=== PATIENT | female | born 1990 | race Hispanic/Latino ===

== ENCOUNTER 2021-10-23 12:23 | Outpatient (CLI) | payer BC ==
[2021-10-24 15:30] LABS: SARS-CoV-2 PCR by NAA Not Detected (NotDetected)
== END 2021-10-23 12:24 | disposition home or self-care (01) ==
LOC: CSHLAB 12:23
PROVIDERS: ATTEND Obstetrics & Gynecology
DX: Z20.822 Contact with and (suspected) exposure to COVID-19 (principal)
CPT/HCPCS: U0003; U0005

== ENCOUNTER 2021-10-26 07:56 | Inpatient (IN) | payer BC ==
[2021-10-27] MEDS: Lactated Ringer's 1,000 ML IV SCH ×2 (12:00→13:26)
[2021-10-27] MEDS ORDERED: CEFAZOLIN 2 GM in Premix Bag 1 BAG IVPB SCH (12:21)
[2021-10-27] MEDS ORDERED: Famotidine/PF 20 mg/2ml Vial SLOW IVP PRN (12:21)
[2021-10-27] MEDS ORDERED: hydrALAZINE 20 MG/ML VIAL SLOW IVP PRN ×2 (12:21→17:50)
[2021-10-27] MEDS ORDERED: Ondansetron PF 4 MG/2 ML Vial IVP PRN ×3 (12:21→17:50)
[2021-10-27] MEDS ORDERED: Promethazine HCl 25 MG/ML VIAL IM PRN ×2 (12:21→15:28)
[2021-10-27] MEDS ORDERED: Bicitra 30 ML UDCUP PO PRN (12:21)
[2021-10-27 12:31] VITALS: BMI 51.2
[2021-10-27 12:51] LABS: Hemoglobin 12.2 g/dL (12.0-15.5); Mean Corpuscular HGB CONC 32.5 g/dL (32.0-36.0); Mean Corpuscular Hemoglobin 28.6 pg (27.0-33.0); Mean Corpuscular Volume 87.8 fl (81.6-98.3); Mean Platelet Volume 10.8 fl (7.4-10.4); Platelet Count 353 10x3/uL (150-450); RBC Distribution Width 14.8 % (11.5-14.5); Red Blood Cell (RBC) Count 4.27 10x6/uL (3.90-5.03); White Blood Cell (WBC) Count 9.1 10x3/uL (3.5-10.5)
[2021-10-27 13:18] LABS: Syphilis Antibody Nonreactive (Nonreactive); Syphilis Antibody Index 0.04 S/CO (<1.00 Non-Reactive)
[2021-10-27 13:19] LABS: Hep B Surf Ag Non-Reactive S/CO (NonReactive)
[2021-10-27 13:58] LABS: HBSAg Index 0.19 S/CO (0-0.99)
[2021-10-27] MEDS ORDERED: ePHEDrine Sulfate 50 MG/10 ML VIAL ONE (14:15)
[2021-10-27] MEDS ORDERED: Morphine PF 10 MG/10 ML VIAL ONE (14:15)
[2021-10-27] MEDS ORDERED: Ketorolac Tromethamine 30 MG/ML VIAL ONE (14:16)
[2021-10-27] MEDS ORDERED: Ondansetron PF 4 MG/2 ML Vial ONE (14:16)
[2021-10-27] MEDS ORDERED: Dexamethasone 4 mg/ml Vial ONE (14:16)
[2021-10-27] MEDS ORDERED: Oxytocin 10 UNITS/ML VIAL ONE (14:16)
[2021-10-27] MEDS ORDERED: Phenylephrine 40 MG/NS 250 ML 250 ML ONE (14:16)
[2021-10-27] MEDS ORDERED: Meperidine HCl/PF 25 MG/ML VIAL SLOW IVP PRN (15:28)
[2021-10-27] MEDS ORDERED: diphenhydrAMINE 50 MG/ML VIAL IVP PRN (15:28)
[2021-10-27] MEDS ORDERED: Hydrocerin (Eucerin) Cream 120 gm Jar TOP PRN (15:28)
[2021-10-27] MEDS ORDERED: Fentanyl 100 MCG/2 ML VIAL SLOW IVP PRN (15:28)
[2021-10-27] MEDS ORDERED: Promethazine HCl 25 MG SUPP PR PRN (15:28)
[2021-10-27] MEDS ORDERED: Ondansetron HCl/PF 4 MG/2 ML Vial IVP PRN (15:28)
[2021-10-27] MEDS ORDERED: Naloxone HCl 0.4 mg/ml Vial IV PRN (15:28)
[2021-10-27] MEDS ORDERED: Naloxone HCl 0.4 mg/ml Vial IVP PRN ×2 (15:28)
[2021-10-27] MEDS ORDERED: Communication Order-Pharmacy FS SCH (15:30)
[2021-10-27] MEDS ORDERED: Ketorolac Tromethamine 30 MG/ML VIAL IVP SCH (15:30)
[2021-10-27] MEDS ORDERED: Simethicone Chewable 80 MG TAB PO PRN (17:50)
[2021-10-27] MEDS ORDERED: NS w/ Oxytocin 30 units 500 ML IV SCH (17:50)
[2021-10-27] MEDS ORDERED: Boostrix 0.5 ML (Tdap) VIAL IM ONE (17:50)
[2021-10-27] MEDS ORDERED: Bisacodyl 10 MG SUPP PR PRN (17:50)
[2021-10-27] MEDS ORDERED: Lanolin Ointment 7 GM TUBE TOP PRN (17:50)
[2021-10-27] MEDS: Ketorolac Tromethamine 30 MG/ML VIAL IVP PRN (22:13)
[2021-10-27] MEDS: Docusate Calcium (SURFAK) 240 MG CAP PO SCH (22:15)
[2021-10-27] MEDS: Ferrous Sulfate 325 MG TAB PO SCH (22:15)
[2021-10-28] MEDS ORDERED: Zolpidem Tartrate 5 MG TAB PO PRN (03:30)
[2021-10-28] MEDS ORDERED: HYDROcodone/Acetaminophen 5/325 mg Tablet PO PRN (03:30)
[2021-10-28 04:19] LABS: Hemoglobin 9.5 g/dL (12.0-15.5); Mean Corpuscular HGB CONC 33.6 g/dL (32.0-36.0); Mean Corpuscular Hemoglobin 29.5 pg (27.0-33.0); Mean Corpuscular Volume 87.9 fl (81.6-98.3); Mean Platelet Volume 9.9 fl (7.4-10.4); Platelet Count 262 10x3/uL (150-450); RBC Distribution Width 14.2 % (11.5-14.5); Red Blood Cell (RBC) Count 3.22 10x6/uL (3.90-5.03); White Blood Cell (WBC) Count 17.1 10x3/uL (3.5-10.5)
[2021-10-28] MEDS: Ketorolac Tromethamine 30 MG/ML VIAL IVP PRN ×2 (05:33→12:15)
[2021-10-28] MEDS: Ferrous Sulfate 325 MG TAB PO SCH ×2 (08:42→21:34)
[2021-10-28] MEDS: Docusate Calcium (SURFAK) 240 MG CAP PO SCH ×2 (08:42→21:34)
[2021-10-28] MEDS: HYDROcodone/Acetaminophen 5/325 mg Tablet PO PRN ×2 (08:43→15:58)
[2021-10-28] MEDS: Ibuprofen 800 MG TAB PO SCH (21:34)
[2021-10-29] MEDS: Ibuprofen 800 MG TAB PO SCH (06:07)
[2021-10-29 06:10] VITALS: TEMP 98.3
[2021-10-29 07:55] VITALS: BP 121/66
== END 2021-10-29 11:35 | disposition home or self-care (01) | DRG 788 ==
LOC: CSHLD 10-27 11:21 → CSHPP 10-27 18:11
PROVIDERS: ADMIT Obstetrics & Gynecology; ATTEND Obstetrics & Gynecology
PROC: 10D00Z1 Extraction of Products of Conception, Low, Open Approach (ICD-10-PCS; principal; 2021-10-27)
DX: O32.1XX0 Maternal care for breech presentation, not applicable or unspecified (principal); O99.214 Obesity complicating childbirth; Z3A.39 39 weeks gestation of pregnancy; Z37.0 Single live birth; E66.8 Other obesity; O90.81 Anemia of the puerperium; D64.9 Anemia, unspecified; Z88.8 Allergy status to other drugs, medicaments and biological substances
CPT/HCPCS: 51702; 85027; 86780; 86850; 86900; 86901; 87340; J0690; J1100; J1885; J2274; J2405; J2590; J7120; S0028

== ENCOUNTER 2024-09-21 23:41 | Emergency (ER) | payer BC ==
[2024-09-21] MEDS ORDERED: Ondansetron PF 4 MG/2 ML Vial ONE (23:55)
== END 2024-09-22 02:44 | disposition home or self-care (01) ==
LOC: CSHERS 23:41
DX: O21.9 Vomiting of pregnancy, unspecified (principal); O99.891 Other specified diseases and conditions complicating pregnancy; R19.7 Diarrhea, unspecified; Z3A.26 26 weeks gestation of pregnancy
CPT/HCPCS: 96374; J2405

== ENCOUNTER 2025-01-16 05:13 | Inpatient (IN) | payer BC ==
[2025-01-15 10:57] LABS: Hematocrit 38.2 % (34.9-44.5); Hemoglobin 12.2 g/dL (12.0-15.5); Platelet Count 312 10x3/uL (150-450)
[2025-01-15 11:37] LABS: HBsAg Index 0.14 S/CO (0-0.99); Hep B Surf Ag Non-Reactive S/CO (NonReactive)
[2025-01-15 11:39] LABS: Syphilis Antibody Nonreactive (Nonreactive); Syphilis Antibody Index 0.04 S/CO (<1.00 Non-Reactive)
[2025-01-16] MEDS ORDERED: Ondansetron PF 4 MG/2 ML Vial IVP PRN ×3 (05:39→13:07)
[2025-01-16] MEDS ORDERED: Bicitra 30 ML UDCUP PO PRN (05:39)
[2025-01-16] MEDS ORDERED: Promethazine HCl 25 MG/ML VIAL IM PRN ×2 (05:39→10:02)
[2025-01-16] MEDS ORDERED: hydrALAZINE 20 MG/ML VIAL SLOW IVP PRN ×2 (05:39→13:07)
[2025-01-16] MEDS ORDERED: CEFAZOLIN 2 GM in Sodium Chloride 0.9% 100 ML IVPB SCH (05:39)
[2025-01-16 05:40] VITALS: BMI 54.5
[2025-01-16] MEDS ORDERED: Oxytocin 30 units/NS 500 ML 500 ML IV SCH (05:45)
[2025-01-16] MEDS ORDERED: Lactated Ringer's 1,000 ML IV SCH (05:45)
[2025-01-16 06:46] LABS: #Basophils 0.03 10x3/uL (0.0-0.2); #Eosinophils 0.09 10x3/uL (0.0-0.5); #Monocytes 0.56 10x3/uL (0.0-1.1); #Neutrophils 5.83 10x3/uL (1.5-8.4); %Basophils 0.3 % (0.0-2.0); %Eosinophils 0.9 % (0.0-6.0); %Lymphocytes 31.4 % (18.0-47.0); %Monocytes 5.9 % (0.0-10.0); %Neutrophils 61.2 % (40.0-75.0); Hematocrit 34.1 % (34.9-44.5); Hemoglobin 11.6 g/dL (12.0-15.5); Mean Corpuscular Hemoglobin 29.2 pg (27.0-33.0); Mean Corpuscular Volume 85.9 fL (81.6-98.3); Mean Platelet Volume 11.1 fL (7.4-10.4); Platelet Count 346 10x3/uL (150-450); RBC Distribution Width 14.6 % (11.5-14.5); Red Blood Cell (RBC) Count 3.97 10x6/uL (3.90-5.03); White Blood Cell (WBC) Count 9.53 10x3/uL (3.5-10.5)
[2025-01-16] MEDS: Famotidine/PF 20 mg/2ml Vial SLOW IVP PRN (07:08)
[2025-01-16] MEDS ORDERED: Meperidine HCl/PF 25 MG (1 mL) VIAL SLOW IVP PRN (10:02)
[2025-01-16] MEDS ORDERED: Naloxone HCl 0.4 mg/ml Vial IVP PRN ×2 (10:02)
[2025-01-16] MEDS ORDERED: Morphine 4 MG/ML VIAL SLOW IVP PRN (10:02)
[2025-01-16] MEDS ORDERED: Naloxone HCl 0.4 mg/ml Vial IV PRN (10:02)
[2025-01-16] MEDS ORDERED: fentaNYL 50 mcg/mL 1 mL Vial SLOW IVP PRN (10:02)
[2025-01-16] MEDS ORDERED: Moisturizing Cream (Eucerin) 113 GM JAR TOP PRN (10:02)
[2025-01-16] MEDS ORDERED: Ketorolac Tromethamine 30 MG (1 mL) VIAL IVP SCH (10:15)
[2025-01-16] MEDS ORDERED: Communication Order-Pharmacy FS SCH (10:15)
[2025-01-16] MEDS ORDERED: Lanolin Ointment 7 GM TUBE TOP PRN (13:07)
[2025-01-16] MEDS ORDERED: Bisacodyl 10 MG SUPP PR PRN (13:07)
[2025-01-16] MEDS: Ondansetron PF 4 MG/2 ML Vial ONE (13:12)
[2025-01-16] MEDS: Morphine PF 10 MG/10 ML VIAL ONE (13:12)
[2025-01-16] MEDS: Dexmedetomidine 200 MCG/2 ML VIAL ONE (13:12)
[2025-01-16] MEDS: Oxytocin 10 UNITS/ML VIAL ONE ×3 (13:12→13:14)
[2025-01-16] MEDS: Dexamethasone 10 MG/ML VIAL ONE (13:12)
[2025-01-16] MEDS: Phytonadione Neonatal 1 MG/0.5 ML AMP ONE (13:13)
[2025-01-16] MEDS: Promethazine HCl 25 MG/ML VIAL ONE ×2 (13:13)
[2025-01-16] MEDS: Hepatitis B Vaccine 10 MCG/0.5 ML SYR ONE (13:13)
[2025-01-16] MEDS: Phenylephrine 10 MG/ML VIAL ONE (13:13)
[2025-01-16] MEDS: PHENYLEPHRINE-NS 100 MCG/ML 10 ML SYRINGE ONE ×2 (13:13)
[2025-01-16] MEDS: Erythromycin Base 0.5% Oint 1 GM TUBE ONE (13:13)
[2025-01-16] MEDS: Ketorolac Tromethamine 30 MG (1 mL) VIAL IVP SCH ×2 (13:23→20:44)
[2025-01-16] MEDS: Ondansetron PF 4 MG/2 ML Vial IVP PRN (13:24)
[2025-01-16] MEDS: Ferrous Sulfate 325 MG TAB PO SCH ×2 (13:26→22:07)
[2025-01-16] MEDS: Docusate 100 MG CAP PO SCH ×2 (13:26→20:45)
[2025-01-16] MEDS: Prenatal Vitamin 1 TAB PO SCH (13:26)
[2025-01-16] MEDS: Boostrix 0.5 ML (Tdap) VIAL (>/=7 yrs of age) IM ONE (20:45)
[2025-01-16] MEDS ORDERED: HYDROcodone/Acetaminophen 5/325 mg Tablet PO PRN (22:15)
[2025-01-17] MEDS: HYDROcodone/Acetaminophen 5/325 mg Tablet PO PRN (01:35)
[2025-01-17] MEDS: Simethicone Chewable 80 MG TAB PO PRN (01:36)
[2025-01-17 05:38] LABS: Hematocrit 31.8 % (34.9-44.5); Hemoglobin 10.5 g/dL (12.0-15.5); Mean Corpuscular Hemoglobin 28.7 pg (27.0-33.0); Mean Corpuscular Volume 86.9 fL (81.6-98.3); Mean Platelet Volume 10.7 fL (7.4-10.4); Platelet Count 304 10x3/uL (150-450); RBC Distribution Width 14.7 % (11.5-14.5); Red Blood Cell (RBC) Count 3.66 10x6/uL (3.90-5.03); White Blood Cell (WBC) Count 13.87 10x3/uL (3.5-10.5)
[2025-01-17] MEDS: Prenatal Vitamin 1 TAB PO SCH (08:13)
[2025-01-17] MEDS: Ibuprofen 800 MG TAB PO SCH (13:16)
[2025-01-18 08:24] VITALS: BP 98/61; TEMP 98.4
== END 2025-01-18 11:45 | disposition home or self-care (01) | DRG 785 ==
LOC: CSHLD 05:13 → CSHPP 12:45
PROVIDERS: ADMIT Obstetrics & Gynecology; ATTEND Obstetrics & Gynecology
PROC: 10D00Z1 Extraction of Products of Conception, Low, Open Approach (ICD-10-PCS; principal; 2025-01-16)
PROC: 0UB70ZZ Excision of Bilateral Fallopian Tubes, Open Approach (ICD-10-PCS; 2025-01-16)
DX: O34.211 Maternal care for low transverse scar from previous cesarean delivery (principal); R00.0 Tachycardia, unspecified; Z3A.39 39 weeks gestation of pregnancy; Z88.8 Allergy status to other drugs, medicaments and biological substances; Z37.0 Single live birth; Z80.7 Family history of other malignant neoplasms of lymphoid, hematopoietic and related tissues
CPT/HCPCS: 36415; 51702; 85014; 85018; 85025; 85027; 85049; 86780; 86850; 86900; 86901; 87340; 88302; 93005; 93010; J1100; J1885; J2274; J2371; J2405; J2550; J2590; J3490